=== PATIENT | female | born 1995 | race Caucasian/White ===

== ENCOUNTER 2020-05-31 10:14 | Observation (INO) | payer MEDICAID ==
[~2020-05-31] VITALS: Ht 157.5 cm; Wt 76.7 kg
== END 2020-05-31 13:55 | disposition home or self-care (01) ==
LOC: MLD 10:14
PROVIDERS: ADMIT Obstetrics & Gynecology; ATTEND Obstetrics & Gynecology
DX: Z03.818 Encounter for observation for suspected exposure to other biological agents ruled out (principal); O62.9 Abnormality of forces of labor, unspecified; Z3A.37 37 weeks gestation of pregnancy
CPT/HCPCS: 76805; G0378; Q0092; U0003; 59025

== ENCOUNTER 2020-06-10 15:22 | Observation (INO) | payer MEDICAID ==
[~2020-06-10] VITALS: Ht 157.5 cm; Wt 78.5 kg
== END 2020-06-10 19:05 | disposition home or self-care (01) ==
LOC: MLD 15:22
PROVIDERS: ADMIT Obstetrics & Gynecology; ATTEND Obstetrics & Gynecology
DX: O62.9 Abnormality of forces of labor, unspecified (principal); Z3A.38 38 weeks gestation of pregnancy
CPT/HCPCS: 76805; G0378; Q0092

== ENCOUNTER 2020-06-14 10:14 | Observation (INO) | payer MEDICAID ==
[~2020-06-14] VITALS: Ht 157.5 cm; Wt 78.9 kg
[2020-06-14] MEDS ORDERED: PREN-537 PO (10:31)
== END 2020-06-14 14:05 | disposition home or self-care (01) ==
LOC: MLD 10:14
PROVIDERS: ADMIT Obstetrics & Gynecology; ATTEND Obstetrics & Gynecology
DX: O62.9 Abnormality of forces of labor, unspecified (principal); Z20.828 Contact with and (suspected) exposure to other viral communicable diseases; Z3A.38 38 weeks gestation of pregnancy
CPT/HCPCS: 76805; 87426; G0378; Q0092; 59025

== ENCOUNTER 2020-06-16 18:25 | Observation (INO) | payer MEDICAID ==
[~2020-06-16] VITALS: Ht 160 cm; Wt 78.0 kg
[~2020-06-16 18:25] MED LIST: PREN-537 PO
[2020-06-16 18:46] VITALS: BP 126/61
== END 2020-06-16 20:30 | disposition home or self-care (01) ==
LOC: MLD 18:25
PROVIDERS: ADMIT Obstetrics & Gynecology; ATTEND Obstetrics & Gynecology
DX: O62.9 Abnormality of forces of labor, unspecified (principal); Z3A.38 38 weeks gestation of pregnancy
CPT/HCPCS: 76815; 81000; G0378; Q0092

== ENCOUNTER 2020-06-17 17:24 | Observation (INO) | payer MEDICAID, SELFPAY ==
[~2020-06-17] VITALS: Ht 157.5 cm; Wt 77.6 kg
[2020-06-17 18:33] VITALS: BP 124/72
--- NOTE | 2020-06-18 07:16 | NUR ---
PATIENT HAS BEEN SCREENED AND CATEGORIZED LOW NUTRITION RISK. PATIENT WILL BE SEEN WITHIN 7 DAYS OF ADMISSION. 06/24/[address]
== END 2020-06-17 19:45 | disposition home or self-care (01) ==
LOC: MLD 17:24 → INTOOBSV 17:24
PROVIDERS: ADMIT Obstetrics & Gynecology; ATTEND Obstetrics & Gynecology
DX: O62.9 Abnormality of forces of labor, unspecified (principal); O36.8130 Decreased fetal movements, third trimester, not applicable or unspecified; Z3A.39 39 weeks gestation of pregnancy
CPT/HCPCS: 76805; G0378; J7120; Q0092

== ENCOUNTER 2020-06-18 12:40 | Inpatient (IN) | payer MEDICAID ==
[~2020-06-18] VITALS: Ht 157.5 cm; Wt 77.6 kg
[2020-06-18] MEDS ORDERED: OXYTOCIN 20 UNITS in LACTATED RINGERS 1,000 ML IV SCH (13:09)
[2020-06-18 13:30] VITALS: BP 119/65
[2020-06-18] MEDS ORDERED: MISOPROSTOL 25 MCG TAB VG SCH (14:30)
[2020-06-18 14:36] LABS: BASOPHILS % (AUTO) 0.4 % (0.0-2.0); EOSINOPHILS # (AUTO) 0.1 K/uL (0-0.4); EOSINOPHILS % (AUTO) 0.9 % (0.0-4.0); HEMATOCRIT 36.6 % (36-48); HEMOGLOBIN 12.1 g/dL (12.0-16.0); LYMPHOCYTES % (AUTO) 24.9 % (20.5-51.1); MEAN CORPUSCULAR HEMOGLOBIN 28 pg (27-31); MEAN CORPUSCULAR HGB CONC 33 g/dL (33-37); MEAN CORPUSCULAR VOLUME 83.9 fL (80-94); MONOCYTES # (AUTO) 0.5 K/uL (0.8-1.0); MONOCYTES % (AUTO) 6.2 % (1.7-9.3); NEUTROPHILS # (AUTO) 5.4 K/uL (1.8-7.7); NEUTROPHILS % (AUTO) 67.6 % (42.2-75.2); PLATELET COUNT (AUTO) 156 K/uL (140-450); RED BLOOD CELL COUNT(AUTO) 4.36 MIL/uL (4.20-5.40); WHITE BLOOD COUNT (AUTO) 7.9 K/uL (4.8-10.8)
[2020-06-18 14:40] LABS: APPEARANCE,URINE CLEAR (CLEAR); BILIRUBIN,URINE NEGATIVE (NEGATIVE); BLOOD, URINE NEGATIVE (NEGATIVE); COLOR,URINE YELLOW (YELLOW); LEUKOCYTE ESTERASE ,URINE NEGATIVE (NEGATIVE); NITRITE, URINE NEGATIVE (NEGATIVE); UGLUCOSE NEGATIVE (NEGATIVE)
[2020-06-18 14:52] LABS: ALBUMIN 2.7 g/dL (3.4-5.0); ANION GAP 15.5 (8-16); CREATININE 0.7 mg/dL (0.6-1.3); POTASSIUM 3.5 mmol/L (3.5-5.1); TOTAL BILIRUBIN 0.3 mg/dL (0.0-1.0)
[2020-06-18] MEDS ORDERED: MORPHINE SULFATE 5 MG/ML VIAL IVP PRN (16:35)
[2020-06-18] MEDS: LACTATED RINGERS 1,000 ML IV SCH (23:06)
[2020-06-19] MEDS ORDERED: OXYTOCIN 20 UNITS/LR PREMIX 1,000 ML IV SCH ×3 (03:00→23:06)
[2020-06-19] MEDS: LACTATED RINGERS 1,000 ML IV SCH ×2 (08:21→15:42)
[2020-06-19] MEDS ORDERED: ROPIVACAINE 0.2%/NS PREMIX 200 ML EPI ONE (08:31)
[2020-06-19] MEDS ORDERED: AMPICILLIN 2,000 MG in NACL 0.9% 100 ML IV SCH (09:30)
[2020-06-19] MEDS ORDERED: AMPICILLIN 2,000 MG VIAL ONE (09:30)
[2020-06-19] MEDS ORDERED: OXYTOCIN 10 UNITS/ML VIAL ONE (12:55)
[2020-06-19] MEDS ORDERED: AMPICILLIN 1,000 MG VIAL ONE ×2 (13:53→18:07)
[2020-06-19] MEDS: AMPICILLIN 1,000 MG in NACL 0.9% 50 ML IV SCH ×2 (13:56→18:10)
[2020-06-19] MEDS ORDERED: TERBUTALINE 1 MG/ML VIAL SUBQ ONE ×2 (18:31→18:40)
[2020-06-19] MEDS ORDERED: CITRIC ACID/SODIUM CITRATE 30 ML UDC PO ONE (18:45)
[2020-06-19] MEDS ORDERED: ceFAZolin 1,000 MG VIAL ONE ×2 (19:16→19:58)
[2020-06-19] MEDS ORDERED: KETAMINE 500 MG/5 ML VIAL ONE (19:19)
[2020-06-19] MEDS ORDERED: MIDAZOLAM 2 MG/2 ML VIAL ONE (19:20)
[2020-06-19] MEDS ORDERED: MORPHINE PRES FREE 10 MG/10 ML AMP IV ONE (19:21)
[2020-06-19] MEDS ORDERED: LIDOCAINE MPF 2% 100 MG/5 ML VIAL INJ ONE ×4 (19:23→19:30)
[2020-06-19] MEDS ORDERED: BUPIVACAINE MPF 0.25% 10 ML VIAL INJ ONE (19:30)
[2020-06-19] MEDS ORDERED: ONDANSETRON 4 MG/2 ML VIAL ONE (19:38)
[2020-06-19] MEDS ORDERED: MEPERIDINE 25 MG/ML SYR IVP PRN (20:20)
[2020-06-19] MEDS ORDERED: ONDANSETRON 4 MG/2 ML VIAL IVP PRN ×2 (20:20→20:35)
[2020-06-19] MEDS ORDERED: NALOXONE 0.4 MG/ML VIAL IVP PRN (20:35)
[2020-06-19] MEDS ORDERED: HYDROmorphone 1 MG/ML AMP IVP PRN ×2 (20:35→23:10)
[2020-06-19] MEDS ORDERED: LIDOCAINE 1% 500 MG/50 ML VIAL ONE (21:55)
[2020-06-19] MEDS ORDERED: LIDOCAINE 1% 500 MG/ 50 ML VIAL INJ ONE (21:56)
[2020-06-19] MEDS ORDERED: METHYLERGONOVINE 0.2 MG/ML AMP ONE (23:06)
[2020-06-19] MEDS ORDERED: MEASLES, MUMPS, AND RUBELLA 1 VIAL SQVAC PRN (23:10)
[2020-06-19] MEDS ORDERED: KETOROLAC 30 MG/ML VIAL IVP PRN (23:10)
[2020-06-19] MEDS ORDERED: METHYLERGONOVINE 0.2 MG/ML AMP IM ONE (23:15)
[2020-06-20] MEDS ORDERED: ACETAMINOPHEN 325 MG TAB PO SCH
[2020-06-20] MEDS: KETOROLAC 30 MG/ML VIAL IVP SCH ×4 (00:18→18:11)
[2020-06-20] MEDS ORDERED: ceFAZolin 1,000 MG VIAL ONE (04:57)
[2020-06-20 08:14] LABS: BASOPHILS # (AUTO) 0.1 K/uL (0.00-0.22); BASOPHILS % (AUTO) 0.5 % (0.0-2.0); EOSINOPHILS % (AUTO) 0.1 % (0.0-4.0); HEMATOCRIT 29.7 % (36-48); LYMPHOCYTES # (AUTO) 1.9 K/uL (2.5-16.5); LYMPHOCYTES % (AUTO) 14.4 % (20.5-51.1); MEAN CORPUSCULAR HEMOGLOBIN 28 pg (27-31); MEAN CORPUSCULAR HGB CONC 34 g/dL (33-37); MEAN CORPUSCULAR VOLUME 83.5 fL (80-94); MONOCYTES % (AUTO) 7.4 % (1.7-9.3); NEUTROPHILS # (AUTO) 10.1 K/uL (1.8-7.7); NEUTROPHILS % (AUTO) 77.6 % (42.2-75.2); PLATELET COUNT (AUTO) 125 K/uL (140-450); RED BLOOD CELL COUNT(AUTO) 3.56 MIL/uL (4.20-5.40); WHITE BLOOD COUNT (AUTO) 13.1 K/uL (4.8-10.8)
--- NOTE | 2020-06-20 09:19 | NUR ---
PATIENT HAS BEEN SCREENED AND CATEGORIZED LOW NUTRITION RISK. PATIENT WILL BE SEEN WITHIN 7 DAYS OF ADMISSION. 06/25/[address]
[2020-06-20] MEDS ORDERED: OXYTOCIN 20 UNITS in LACTATED RINGERS 1,000 ML IV SCH (10:40)
[2020-06-21] MEDS: ACETAMINOPHEN 325 MG TAB PO SCH ×2 (06:00)
[2020-06-21] MEDS ORDERED: SODIUM PHOSPHATE 118 ML ENEM RC PRN (09:00)
[2020-06-21] MEDS ORDERED: IBUPROFEN 600 MG TAB PO PRN (09:00)
[2020-06-21] MEDS ORDERED: ACETAMINOPHEN 325 MG TAB PO PRN (09:00)
[2020-06-21] MEDS: SIMETHICONE 80 MG TAB.CHEW PO SCH ×2 (09:57→13:41)
[2020-06-21] MEDS: DOCUSATE SODIUM 100 MG GELCAP PO SCH (09:57)
[2020-06-21] MEDS: bisacodyL 5 MG TABEC PO SCH (09:59)
[2020-06-22] MEDS: DOCUSATE SODIUM 100 MG GELCAP PO SCH (08:57)
[2020-06-22] MEDS: SIMETHICONE 80 MG TAB.CHEW PO SCH ×3 (08:57→17:56)
[2020-06-22] MEDS: bisacodyL 5 MG TABEC PO SCH (08:57)
[2020-06-22] MEDS: ACETAMINOPHEN 325 MG TAB PO SCH ×2 (17:57→23:57)
[2020-06-23] MEDS: ACETAMINOPHEN 325 MG TAB PO SCH (06:47)
[2020-06-23] MEDS: DOCUSATE SODIUM 100 MG GELCAP PO SCH (09:44)
[2020-06-23] MEDS: SIMETHICONE 80 MG TAB.CHEW PO SCH ×2 (09:45→13:00)
[2020-06-23] MEDS: bisacodyL 5 MG TABEC PO SCH (09:46)
== END 2020-06-23 15:00 | disposition home or self-care (01) | DRG 540 ==
LOC: MLD 12:40 → MFCC 06-19 19:45
PROVIDERS: ADMIT Obstetrics & Gynecology; ATTEND Obstetrics & Gynecology
PROC: 10D00Z1 Extraction of Products of Conception, Low, Open Approach (ICD-10-PCS; principal; 2020-06-19 19:30)
PROC: 3E0234Z Introduction of Serum, Toxoid and Vaccine into Muscle, Percutaneous Approach (ICD-10-PCS; 2020-06-21)
DX: O62.1 Secondary uterine inertia (principal); O77.0 Labor and delivery complicated by meconium in amniotic fluid; O76 Abnormality in fetal heart rate and rhythm complicating labor and delivery; Z37.0 Single live birth; Z3A.41 41 weeks gestation of pregnancy; Z23 Encounter for immunization; O99.214 Obesity complicating childbirth; E66.01 Morbid (severe) obesity due to excess calories
CPT/HCPCS: 36415; 59200; 59412; 80053; 81003; 85025; 86592; 86886; 86900; 86901; 87086; 90715; J0290; J0690; J1885; J2001; J2210; J2250; J2270; J2405; J2590; J2795; J3105; J3490; J7060; J7120

== ENCOUNTER 2020-08-09 20:10 | Emergency (ER) | payer MEDICAID ==
[~2020-08-09] VITALS: Ht 157.5 cm; Wt 68.0 kg
[2020-08-09 20:14] VITALS: BP 116/74
--- NOTE | 2020-08-09 20:16 | NUR ---
To ED bed 11
[2020-08-09] MEDS ORDERED: ALUMINUM HYD/MAG/SIMETHICONE 30 ML, DICYCLOMINE HCL LIQUID 20 MG, LIDOCAINE VISCOUS 2% ... PO ONE ×3 (20:30)
[2020-08-09] MEDS ORDERED: KETOROLAC 60 MG/2 ML VIAL IM ONE (20:30)
--- NOTE | 2020-08-09 20:40 | NUR ---
25 Y/O F, CAME IN TO ER WITH C/O ABDOMINAL PAIN, 04/29, REPORTS IT STARTED YESTERDAY, GASSY WITH PRESSURE. REPORTS SOME CONSTIPATION. TOOK GASEX OVER THE COUNTER MED, WITH NO RELIEF. NO N/V, ON REGULAR DIET. VSS. PAST MEDHX: CSECTION 06/19/20 RUIA
[2020-08-09] MEDS ORDERED: LIDOCAINE VISCOUS 2% 20 ML UDC ONE (20:54)
[2020-08-09] MEDS ORDERED: ALUMINUM HYD/MAG/SIMETHICONE 30 ML UDC ONE (20:54)
[2020-08-09] MEDS ORDERED: DICYCLOMINE HCL LIQUID 10 MG/5 ML UDC ONE (20:55)
--- NOTE | 2020-08-09 21:20 | NUR ---
Patient states abd pain now at 0/10 after administration of Toradol. "I am feeling so much better".
[2020-08-09 21:37] VITALS: BP 116/74
--- NOTE | 2020-08-09 21:37 | NUR ---
Patient discharged with v/s stable. Written and verbal after care instructions given and explained. Patient alert, oriented and verbalized understanding of instructions. Ambulatory with steady gait. All questions addressed prior to discharge. ID band removed. Patient advised to follow up with PMD. Rx of Tylenol extra strength and pepcid given. Patient educated on indication of medication including possible reaction and side effects. Opportunity to ask questions provided and answered.
== END 2020-08-09 21:37 | disposition home or self-care (01) ==
LOC: MED 20:10
DX: R10.13 Epigastric pain (principal); Z79.899 Other long term (current) drug therapy
CPT/HCPCS: 81002; 81025; 96372; 99283; J1885